=== PATIENT | male | born 1950 ===

== ENCOUNTER 2020-10-22 06:11 | Emergency (ER) | payer MEDICARE ==
[2020-10-22] MEDS ORDERED: Sodium Chloride 0.9% 2.5 ML Syringe FLUSH PRN (06:16)
[2020-10-22] MEDS ORDERED: Sodium Chloride 0.9% 10 ML Syringe FLUSH PRN (06:16)
[2020-10-22] MEDS ORDERED: Clopidogrel 75 MG Tab PO ONE (06:18)
[2020-10-22] MEDS ORDERED: Aspirin 81 MG Tab.Chew ONE (06:21)
[2020-10-22] MEDS ORDERED: Heparin Sodium 5,000 Units/ML Vial ONE (06:21)
[2020-10-22] MEDS ORDERED: Clopidogrel 75 MG Tab ONE (06:21)
[2020-10-22] MEDS ORDERED: Nitroglycerin 0.4 MG Tab.SL ONE (06:21)
--- NOTE | 2020-10-22 06:24 | EDM.PDOC ---
ED HPI GENERAL MEDICAL PROBLEM - General Stated Complaint: CHEST PAIN Time Seen by Provider: 10/22/20 06:16 - History of Present Illness INITIAL COMMENTS - FREE TEXT/NARRATIVE: History of present illness: [] This patient awakened at 430 with chest pain. He had diaphoresis and shortness of breath. Aspirin was given and nitro in route. He has relief of his pain now. The patient is a smoker and treated for hypertension but not diabetic. Review of systems: As per history of present illness and below otherwise all systems reviewed and negative. Past medical history: As per history of present illness and as reviewed below otherwise noncontributo ry. Surgical history: As per history of present illness and as reviewed below otherwise noncontributory. Social history: No reported history of drug or alcohol abuse. Family history: As per history of present illness and as reviewed below otherwise noncontributory. Physical exam: Constitutional - well developed, well-nourished and in no acute distress HEENT - normocephalic, no evidence of trauma - external nose and mouth normal - no mass in neck and no JVD - mucosae moist EYES - full EOM, PERRL, no icterus - no evidence of inflammation, injection, or drainage Respiratory - no respiratory distress, equal bilateral expansion, lungs clear to auscultation and no abnormal lung sounds Cardiovascular - Regular Rhythm with S1 and S2 appreciated and no murmur, gallop or rub. GI - abdomen soft without distension or organomegaly - normal bowel sounds - no guard or rebound Musculoskeletal no gross deformity of long bones or joints - no tenderness, swelling or edema Neurologic - Alert and oriented times four - CN II-XII grossly intact - motor sensory and coordination symmetrically normal Psychiatric - appropriate mood and affect with normal thought content Hematologic - No petechiae or purpura - mucosa appropriate color and sclera not pale - normal nail bed color and refill Integument - no rash or evidence of trauma - normal turgor Diagnostics: [] Therapeutics: [] Impression: [] Plan: [] Definitive disposition and diagnosis as appropriate pending reevaluation and review of above. ED ROS GENERAL - Review of Systems Review Of Systems: Comprehensive ROS is negative, except as noted in HPI. ED EXAM, GENERAL - Physical Exam Exam: See Below Free Text/Narrative:: My physical exam is in the HPI #1 Interpretation EKG Interpretation Comments: G done at 0608 shows a sinus tachycardia with ventricular ectopy. Heart rate 97. [place] -40. 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 There is an anterior wall STEMI. Patient STEMI Course - Vital Signs Text/Narrative:: Patient had complete relief of his pain with 3 nitros but has an obvious STEMI on the [place] blood pressure is stable. Pressure was high at first. [place] with Dr. Oh at [facility]. Because of transportation delays will be 100 minutes before he can get to the [facility] by the time I get him to [place]. Alteplase will be administered here along with heparin and Plavix. - Orders/Labs/Meds Orders: Active Orders 24 hr Category Date Time Status EKG Documentation Completion [RC] AM Care 10/22/20 06:16 Active Chest 1V Frontal [CR] Stat Exams 10/22/20 06:17 Ordered CBC WITH AUTO DIFF [HEME] Stat Lab 10/22/20 06:20 Received COMPREHENSIVE METABOLIC PN,CMP [CHEM] Stat Lab 10/22/20 06:20 Received INR,PT,PROTHROMBIN TIME [COAG] Stat Lab 10/22/20 06:20 Received MAGNESIUM [CHEM] Stat Lab 10/22/20 06:20 Received PTT,PARTIAL THROMBOPLSTIN TIME [COAG] Stat Lab 10/22/20 06:20 Received TROPONIN I [CHEM] Stat Lab 10/22/20 06:20 Received Sodium Chloride 0.9% [Saline Flush] Med 10/22/20 06:16 Active 10 ml FLUSH ASDIRECTED PRN Sodium Chloride 0.9% [Saline Flush] Med 10/22/20 06:16 Active 2.5 ml FLUSH ASDIRECTED PRN Tenecteplase [Tnkase] Med 10/22/20 06:31 Stat 45 mg IV STAT STA Saline Lock Insert [OM.PC] Stat Oth 10/22/20 06:16 Ordered Medication Orders Sodium Chloride (Sodium Chloride 0.9% 10 Ml Syringe) 10 ml FLUSH ASDIRECTED PRN PRN Reason: Keep Vein Open Sodium Chloride (Sodium Chloride 0.9% 2.5 Ml Syringe) 2.5 ml FLUSH ASDIRECTED PRN PRN Reason: Keep Vein Open Meds: Medications Generic Name Dose Route Start Last Admin Trade Name Freq PRN Reason Stop Dose Admin Sodium Chloride 10 ml 10/22/20 06:16 Sodium Chloride 0.9% 10 Ml Syringe FLUSH ASDIRECTED PRN Keep Vein Open Sodium Chloride 2.5 ml 10/22/20 06:16 Sodium Chloride 0.9% 2.5 Ml Syringe FLUSH ASDIRECTED PRN Keep Vein Open Discontinued Medications Generic Name Dose Route Start Last Admin Trade Name Evensq PRN Reason Stop Dose Admin Aspirin Confirm 10/22/20 06:21 Aspirin 81 Mg Tab.Chew Administered 10/22/20 06:22 Dose 324 mg .ROUTE .STK-MED ONE Clopidogrel Bisulfate 300 mg 10/22/20 06:18 Clopidogrel 75 Mg Tab PO 10/22/20 06:19 ONETIME ONE Clopidogrel Bisulfate Confirm 10/22/20 06:21 Clopidogrel 75 Mg Tab Administered 10/22/20 06:22 Dose 300 mg .ROUTE .STK-MED ONE Heparin Sodium (Porcine) Confirm 10/22/20 06:21 Heparin Sodium 5,000 Units/Ml Vial Administered 10/22/20 06:22 Dose 5,000 units .ROUTE .STK-MED ONE Heparin Sodium/Sodium Chloride Confirm 10/22/20 06:22 Heparin 25,000 Units In 1/2 Ns 500 Ml Administered 10/22/20 06:23 Dose 500 mls @ as directed .ROUTE .STK-MED ONE Nitroglycerin Confirm 10/22/20 06:21 Nitroglycerin 0.4 Mg Tab.Sl Administered 10/22/20 06:22 Dose 0.4 mg .ROUTE .STK-MED ONE Departure - Departure Time of Disposition: 06:45 Disposition: DC/[facility]fer to Acute Hospital 02 Clinical Impression: STEMI (ST elevation myocardial infarction) - Discharge Information - My Orders Last 24 Hours: My Active Orders 10/22/20 06:16 EKG Documentation Completion [RC] AM Sodium Chloride 0.9% [Saline Flush] 10 ml FLUSH ASDIRECTED PRN Sodium Chloride 0.9% [Saline Flush] 2.5 ml FLUSH ASDIRECTED PRN Saline Lock Insert [OM.PC] Stat 10/22/20 06:17 Chest 1V Frontal [CR] Stat 10/22/20 06:20 CBC WITH AUTO DIFF [HEME] Stat COMPREHENSIVE METABOLIC PN,CMP [CHEM] Stat INR,PT,PROTHROMBIN TIME [COAG] Stat MAGNESIUM [CHEM] Stat PTT,PARTIAL THROMBOPLSTIN TIME [COAG] Stat TROPONIN I [CHEM] Stat 10/22/20 06:31 Tenecteplase [Tnkase] 45 mg IV STAT STA - Assessment/Plan Last 24 Hours: My Active Orders 10/22/20 06:16 EKG Documentation Completion [RC] AM Sodium Chloride 0.9% [Saline Flush] 10 ml FLUSH ASDIRECTED PRN Sodium Chloride 0.9% [Saline Flush] 2.5 ml FLUSH ASDIRECTED PRN Saline Lock Insert [OM.PC] Stat 10/22/20 06:17 Chest 1V Frontal [CR] Stat 10/22/20 06:20 CBC WITH AUTO DIFF [HEME] Stat COMPREHENSIVE METABOLIC PN,CMP [CHEM] Stat INR,PT,PROTHROMBIN TIME [COAG] Stat MAGNESIUM [CHEM] Stat PTT,PARTIAL THROMBOPLSTIN TIME [COAG] Stat TROPONIN I [CHEM] Stat 10/22/20 06:31 Tenecteplase [Tnkase] 45 mg IV STAT STA
[2020-10-22] MEDS ORDERED: Tenecteplase 50 MG Kit ONE (06:31)
[2020-10-22] MEDS ORDERED: Tenecteplase 50 MG Kit IV STA (06:31)
[2020-10-22] MEDS ORDERED: Heparin Sodium 5,000 Units/ML Vial IVPUSH ONE (06:42)
[2020-10-22] MEDS ORDERED: Heparin Sodium/0.45% NaCl 500 ML IV STA (06:42)
--- NOTE | 2020-10-22 06:45 | CR ---
Indication: Chest pain Comparison: None available. Technique: Single AP view chest Findings: There is hyperinflation and chronic interstitial change. There are increased interstitial markings likely representing pulmonary vascular congestion. There is no dense consolidation, effusion, or pneumothorax. The cardiac silhouette is mildly prominent. Incidental note is made of left cervical rib. Impression: Hyperinflation and chronic interstitial changes with increased interstitial markings likely representing pulmonary vascular congestion. Dictated by Aguila Rojas MD @ Oct 22 2020 6:43AM Signed by Dr. Aguila Rojas @ Oct 22 2020 6:44AM
[2020-10-22] MEDS: Heparin Sodium/0.45% NaCl 500 ML ONE ×2 (06:47→07:30)
[2020-10-22 07:00] LABS: BLOOD UREA NITROGEN,BUN 16 mg/dL (7.0-18.0); CHLORIDE,CL 104 mmol/L (98-107); GLUCOSE RANDOM 179 mg/dL (74-106); POTASSIUM,K 3.1 mmol/L (3.5-5.1); SODIUM,NA 140 mmol/L (136-148)
== END 2020-10-22 07:10 ==
LOC: MW.ED 06:11
DX: I21.3 ST elevation (STEMI) myocardial infarction of unspecified site (principal); Z20.822 Contact with and (suspected) exposure to COVID-19
CPT/HCPCS: 36415; 71045; 80053; 83735; 84484; 85025; 85610; 85730; 93005; 96365; 96374; 96375; 99285; A9270; J1644; J3101; U0002; 93010; 99291